=== PATIENT | male | born 1930 | race Asian ===

== ENCOUNTER 2020-03-28 09:32 | Emergency (ER) | payer MEDICARE, MEDICAID ==
[~2020-03-28] VITALS: Ht 162.6 cm; Wt 59.0 kg
[2020-03-28 09:45] VITALS: BP 104/55
--- NOTE | 2020-03-28 10:03 | Emergency Room Report ---
History of Present Illness General Chief Complaint: Altered Mental Status Source: Family Member, Medical Record Present Illness HPI Patient is an 89-year-old male brought in by EMS after decreased mental status. Onset of symptoms approximate 1 hour prior to arrival. He had reportedly been having a decreased appetite for the past 2 days. Prior history of diabetes and had previously been on insulin. He had been off medications for several days due to lack of eating. 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 He had not been vomiting or having any known diarrhea. Patient had recent hospitalization at [facility]. History is obtained primarily from EMS and patient's daughter. Prior history of dementia. Previous episode of seizures. Patient had been sent in from [facility] Allergies: Coded Allergies: IBUPROFEN (Verified Allergy, Unknown, 03/28/20) COVID-19 Screening Contact w/high risk pt: Yes Recent Travel to affected area: No Experienced COVID-19 symptoms?: No Patient History Past Medical History: see triage record Reviewed Nursing Documentation: PMH: Agreed; PSxH: Agreed Nursing Documentation-PMH Hx Hypertension: Yes - hyperlipidemia, bradycardia,coronary angioplaty Hx Diabetes: Yes Review of Systems All Other Systems: limited - Limited by mental status Physical Exam Vital Signs Date Time Temp Pulse Resp B/P (MAP) Pulse Ox O2 Delivery O2 Flow Rate FiO2 03/28/20 09:27 98.4 91 18 104/55 (71) 94 Room Air General Appearance: alert, cachetic, Chronically Ill Neck: limited range of motion Respiratory: lungs clear, normal breath sounds Cardiovascular #1: normal inspection, normal peripheral pulses, regular rate, rhythm, edema - Right foot edema Gastrointestinal: normal inspection, normal bowel sounds, non tender, soft, non -distended Rectal: normal exam Musculoskeletal: normal inspection, decreased range of motion Neurologic: alert, motor weakness, aphasia Skin: no rash Medical Decision Making Diagnostic Impression: Primary Impression: Coronavirus infection Additional Impressions: Altered mental status Hypoglycemia Pneumonia ER Course Patient presented for altered mental status. Differential diagnosis include was not limited to hypoglycemia, CVA, intracranial hemorrhage, sepsis among others. Because of complexity of patient's case laboratory tests and imaging studies were ordered. Patient was noted to have prior DNR status. Per discussion with the patient's daughter he is to have other interventions performed.CT of the head read by radiology showed no acute infarct or hemorrhage with prominent ventricles and sulci secondary to volume loss patient was noted to be hyperglycemic and was started on IV dextrose. Repeat blood sugar was noted to be improved. Patient was noted to have elevated white blood count. Chest x-ray read by radiology showed bibasilar opacities which likely represent a combination of small pleural effusions with atelectasis versus pneumonia. Patient was discussed with Dr. Stacy Aguilar [facility] and patient will be transferred due to family request. Patient was noted to have some improvement in mental status after IV hydration. Laboratory Tests Test 03/28/20 09:40 03/28/20 11:30 White Blood Count 18.2 K/UL (4.8-10.8) H Red Blood Count 3.43 M/UL (4.70-6.10) L Hemoglobin 10.9 G/DL (14.2-18.0) L Hematocrit 30.8 % (42.0-52.0) L Mean Corpuscular Volume 90 FL (80-99) Mean Corpuscular Hemoglobin 31.6 PG (27.0-31.0) H Mean Corpuscular Hemoglobin Concent 35.3 G/DL (32.0-36.0) Red Cell Distribution Width 14.1 % (11.6-14.8) Platelet Count 450 K/UL (150-450) Mean Platelet Volume 7.1 FL (6.5-10.1) Neutrophils (%) (Auto) % (45.0-75.0) Lymphocytes (%) (Auto) % (20.0-45.0) Monocytes (%) (Auto) % (1.0-10.0) Eosinophils (%) (Auto) % (0.0-3.0) Basophils (%) (Auto) % (0.0-2.0) Differential Total Cells Counted 100 Neutrophils % (Manual) 89 % (45-75) H Lymphocytes % (Manual) 5 % (20-45) L Monocytes % (Manual) 6 % (1-10) Eosinophils % (Manual) 0 % (0-3) Basophils % (Manual) 0 % (0-2) Band Neutrophils 0 % (0-8) Platelet Estimate Adequate Platelet Morphology Normal Anisocytosis 1+ Sodium Level 139 MMOL/L (136-145) Potassium Level 4.5 MMOL/L (3.5-5.1) Chloride Level 106 MMOL/L (98-107) Carbon Dioxide Level 23 MMOL/L (21-32) Anion Gap 10 mmol/L (5-15) Blood Urea Nitrogen 12 mg/dL (7-18) Creatinine 0.8 MG/DL (0.55-1.30) Estimated Glomerular Filtration Rate > 60 mL/min (>60) Glucose Level 56 MG/DL (74-106) L Lactic Acid Level 3.70 mmol/L (0.4-2.0) H 5.30 mmol/L (0.66-2.22) H Calcium Level 8.9 MG/DL (8.5-10.1) Phosphorus Level 3.5 MG/DL (2.5-4.9) Magnesium Level 2.0 MG/DL (1.8-2.4) Total Bilirubin 0.6 MG/DL (0.2-1.0) Aspartate Amino Transferase (AST) 48 U/L (15-37) H Alanine Aminotransferase (ALT) 47 U/L (12-78) Alkaline Phosphatase 109 U/L (46-116) Total Creatine Kinase 192 U/L (26-308) Creatine Kinase MB 3.4 NG/ML (0.0-3.6) Creatine Kinase MB Relative Index 1.7 Troponin I 0.099 ng/mL (0.000-0.056) Total Protein 6.7 G/DL (6.4-8.2) Albumin 1.8 G/DL (3.4-5.0) L Globulin 4.9 g/dL Albumin/Globulin Ratio 0.4 (1.0-2.7) L EKG Diagnostic Results Rate: normal Rhythm: NSR ST Segments: other - prolonged qt Last Vital Signs Date Time Temp Pulse Resp B/P (MAP) Pulse Ox O2 Delivery O2 Flow Rate FiO2 03/28/20 09:27 98.4 91 18 104/55 (71) 94 Room Air Status: improved Disposition: SHORT-TERM HOSP Condition: Stable Singh Marroquin MD March 28, 2020 10:03
[2020-03-28] MEDS ORDERED: PROSTATE SR SO1 EAC1 PO (10:10)
[2020-03-28] MEDS ORDERED: ARICEPT5 MG ORAL (10:10)
[2020-03-28] MEDS ORDERED: METOPROLOL TART25 MG ORAL (10:10)
[2020-03-28] MEDS ORDERED: PLAVIX75 MG ORAL (10:10)
[2020-03-28] MEDS ORDERED: LIPITOR10 MG ORAL (10:10)
[2020-03-28] MEDS ORDERED: MULTIVITAMINS1 EAC2 ORAL (10:10)
[2020-03-28] MEDS ORDERED: FERROUS SULFAT325 MG ORAL (10:10)
[2020-03-28] MEDS ORDERED: MIRTAZAPINE15 MG ORAL (10:10)
[2020-03-28] MEDS ORDERED: ASPIR 8181 MG ORAL (10:10)
[2020-03-28] MEDS ORDERED: LOSARTAN POTASS25 MG ORAL (10:10)
[2020-03-28] MEDS ORDERED: DOCUSATE SODIU100 MG ORAL (10:10)
[2020-03-28] MEDS ORDERED: FLOMAX0.4 MG ORAL (10:10)
[2020-03-28] MEDS ORDERED: VITAMIN B COMP1 EAC2 ORAL (10:10)
[2020-03-28 10:46] LABS: ANION GAP 10 mmol/L (5-15); BLOOD UREA NITROGEN 12 mg/dL (7-18); CALCIUM 8.9 MG/DL (8.5-10.1); CARBON DIOXIDE 23 MMOL/L (21-32); CHLORIDE 106 MMOL/L (98-107); CREATININE 0.8 MG/DL (0.55-1.30); POTASSIUM 4.5 MMOL/L (3.5-5.1); SODIUM 139 MMOL/L (136-145)
[2020-03-28 10:48] LABS: HEMATOCRIT 30.8 % (42.0-52.0); HEMOGLOBIN 10.9 G/DL (14.2-18.0); MEAN CORPUSCULAR VOLUME 90 FL (80-99); PLATELET COUNT 450 K/UL (150-450); RED BLOOD COUNT 3.43 M/UL (4.70-6.10); RED CELL DISTRIBUTION WIDTH 14.1 % (11.6-14.8); WHITE BLOOD COUNT 18.2 K/UL (4.8-10.8)
--- NOTE | 2020-03-28 10:55 | Diagnostic Imaging Report ---
EXAM: XR Chest, 1 View CLINICAL HISTORY: SOB TECHNIQUE: Frontal view of the chest. COMPARISON: None FINDINGS: Hardware: None. Lungs/pleura: Bibasilar opacities likely represent combination of small pleural effusions with atelectasis versus pneumonia. Emphysematous changes. Scarring at the lung apices. Heart/mediastinum: Left-sided pacemaker. No cardiomegaly. Soft tissues: Unremarkable. Bones: No acute fracture. Degenerative changes of the acromioclavicular joints and spine. Upper abdomen: Normal. IMPRESSION: Bibasilar opacities likely represent combination of small pleural effusions with atelectasis versus pneumonia.
[2020-03-28 10:59] LABS: ALANINE AMINOTRANSFERASE 47 U/L (12-78); ALBUMIN 1.8 G/DL (3.4-5.0); ALBUMIN/GLOBULIN RATIO 0.4 (1.0-2.7); ALKALINE PHOSPHATASE 109 U/L (46-116); ASPARTATE AMINO TRANSFERASE 48 U/L (15-37); BILIRUBIN,TOTAL 0.6 MG/DL (0.2-1.0); CKMB 3.4 NG/ML (0.0-3.6); CREATINE KINASE 192 U/L (26-308); PHOSPHORUS 3.5 MG/DL (2.5-4.9)
--- NOTE | 2020-03-28 11:31 | Diagnostic Imaging Report ---
EXAM: CT Head Without Intravenous Contrast CLINICAL HISTORY: AMS TECHNIQUE: Axial computed tomography images of the head/brain without intravenous contrast. CTDI is 53.4 mGy and DLP is 1077.5 mGy-cm. One or more of the following dose reduction techniques were used: automated exposure control, adjustment of the mA and/or kV according to patient size, use of iterative reconstruction technique. COMPARISON: None FINDINGS: Brain: No acute infarct or hemorrhage identified. Probable thin linear vascular structures or artifact in the extra-axial spaces along the frontal lobes. No mass effect or midline shift. Scattered areas of hypoattenuation in the supratentorial white matter likely represent chronic small vessel ischemic changes. Ventricles and sulci: Prominence of the ventricles and sulci is likely secondary to cerebral volume loss. Bones: Old fracture deformity of the medial left orbit. Subcutaneous tissues: Mild right frontal soft tissue swelling. Sinuses: Mild secretions in the left sphenoid sinus. Mastoid air cells: Normal. Orbits: Please see above. Other: Atherosclerotic calcifications in the intracranial vasculature. IMPRESSION: 1. No acute intracranial abnormality. 2. Chronic small vessel ischemic changes and cerebral volume loss.
[2020-03-28] MEDS ORDERED: cefTRIAXone 1 GM in NS 55 ML IVPB ONE (12:15)
[2020-03-28] MEDS ORDERED: D5 1/2NS w/KCl 20mEq 1,000 ML IV SCH (12:30)
[2020-03-28 13:33] VITALS: BP 116/87
[2020-03-28 14:07] VITALS: BP 116/87
== END 2020-03-28 14:14 | disposition short-term general hospital (02) ==
LOC: EDBD 09:32 → EMR 10:00
DX: U07.1 COVID-19 (principal); R41.82 Altered mental status, unspecified; E11.649 Type 2 diabetes mellitus with hypoglycemia without coma; J18.9 Pneumonia, unspecified organism; R11.10 Vomiting, unspecified; E78.5 Hyperlipidemia, unspecified; F03.90 Unspecified dementia, unspecified severity, without behavioral disturbance, psychotic disturbance, mood disturbance, and anxiety; G40.909 Epilepsy, unspecified, not intractable, without status epilepticus; R60.0 Localized edema; R47.01 Aphasia; Z88.6 Allergy status to analgesic agent; Z95.0 Presence of cardiac pacemaker; Z66 Do not resuscitate; Z95.5 Presence of coronary angioplasty implant and graft; Z86.73 Personal history of transient ischemic attack (TIA), and cerebral infarction without residual deficits
CPT/HCPCS: 36415; 70450; 71045; 80053; 82550; 82553; 83605; 83735; 84100; 84484; 85007; 85025; 87040; 93005; 96361; 96365; 96375; 99285; J0696